=== PATIENT | female | born 1955 | race Caucasian/White ===

== ENCOUNTER → 2017-05-27 | Outpatient (CLI) | payer OTHER ==
[~2017-05-27] MED LIST: BUPR150T2; BUPR75 PO; ESCI20; LEVFLO500 PO; LORA1 PO; METF500 PO; OMEPRAZOLE MAGN20 MG PO; VENL37.5 PO
== END | disposition home or self-care (01) ==
LOC: LAB 08:30
DX: N39.0 Urinary tract infection, site not specified (principal)
CPT/HCPCS: 87086

== ENCOUNTER 2017-07-08 12:06 | Emergency (ER) | payer OTHER ==
[~2017-07-08] VITALS: Ht 165.1 cm; Wt 70.3 kg
[~2017-07-08 12:06] MED LIST changes: -METF500 PO
[2017-07-08 14:14] LABS: BASOPHILS ABSOLUTE AUTO 0.05 K/mm3 (0.00-0.23); BASOPHILS PERCENT AUTO 1 % (0-2); EOSINOPHILS ABSOLUTE AUTO 0.07 K/mm3 (0.00-0.68); EOSINOPHILS PERCENT AUTO 1 % (0-6); Hematocrit 36.9 % (33.0-51.0); Hemoglobin 11.7 g/dL (11.5-16.0); IMMATURE GRAN ABSOLUTE AUTO 0.01 K/mm3 (0.00-0.10); IMMATURE GRAN PERCENT AUTO 0 % (0-1); LYMPHOCYTES ABSOLUTE AUTO 2.34 K/mm3 (0.84-5.20); LYMPHOCYTES PERCENT AUTO 43 % (21-46); MONOCYTES ABSOLUTE AUTO 0.61 K/mm3 (0.16-1.47); MONOCYTES PERCENT AUTO 11 % (4-13); Mean Corpuscular HGB 26.5 pg (26.0-34.0); Mean Corpuscular HGB Conc 31.7 g/dL (31.5-36.5); Mean Corpuscular Volume 84 fL (80-100); Mean Platelet Volume 9.6 fL (9.1-12.4); NEUTROPHILS ABSOLUTE AUTO 2.39 K/mm3 (1.96-9.15); NEUTROPHILS PERCENT AUTO 44 % (41-73); Platelet Count 263 K/mm3 (150-400); RDW Coefficient Variation 13.2 % (11.7-14.2); RDW Standard Deviation 40.6 fL (35.1-46.3); Red Blood Cell Count 4.42 M/mm3 (3.80-5.20); White Blood Cell Count 5.47 K/mm3 (4.00-11.30)
[2017-07-08 14:30] LABS: Alanine Aminotransfer (ALT/SGP 32 U/L (12-78); Albumin, Blood 3.6 g/dL (3.4-5.0); Albumin/Globulin Ratio 1.1 (0.8-1.8); Alk Phos 85 U/L (50-136); Anion Gap 7 mmol/L (6-16); Aspartate Aminotrans (AST/SGOT 19 U/L (12-37); Bilirubin, Total 0.1 mg/dL (0.1-1.0); Blood Urea Nitrogen 13 mg/dL (8-24); Bun/Creatinine Ratio 18.5 (12.0-20.0); CO2, Blood 27 mmol/L (21-32); Calcium, Blood 8.2 mg/dL (8.5-10.1); Chloride, Blood 106 mmol/L (98-108); Globulin, Blood 3.3 g/dL (2.2-4.0); Glomerular Filtration Rate >60 (60-); Glucose, Blood 95 mg/dL (70-99); Potassium, Blood 4.1 mmol/L (3.5-5.5); Sodium, Blood 140 mmol/L (136-145); Total Protein, Blood 6.9 g/dL (6.4-8.2); Troponin I <0.015 ng/mL (0.000-0.040)
[2017-07-08] MEDS ORDERED: VENL37.5 PO (16:10)
[2017-07-08] MEDS ORDERED: METF500 PO (16:11)
== END 2017-07-08 16:52 | disposition home or self-care (01) ==
LOC: ER 12:06
PROVIDERS: Physician Assistant
DX: G56.01 Carpal tunnel syndrome, right upper limb (principal); E11.9 Type 2 diabetes mellitus without complications; Z90.710 Acquired absence of both cervix and uterus; Z79.84 Long term (current) use of oral hypoglycemic drugs; Z79.899 Other long term (current) drug therapy
CPT/HCPCS: 29125; 36415; 71046; 80053; 84484; 85025; 93005; 93010; 99283; L3917

== ENCOUNTER → 2017-10-18 | Outpatient (CLI) | payer OTHER ==
[~2017-10-18] MED LIST changes: +METF500 PO
== END ==
LOC: LAB SHORT 15:35 → OLS 15:35
PROVIDERS: Nurse Practitioner Women's Health
DX: Z12.72 Encounter for screening for malignant neoplasm of vagina (principal)
CPT/HCPCS: 87624; G0123

== ENCOUNTER → 2019-08-16 | Outpatient (CLI) | payer OTHER ==
[2019-08-16 20:28] LABS: Influenza A Negative (NEGATIVE); Influenza B Negative (NEGATIVE)
== END ==
LOC: LAB SHORT 18:27 → LAB 18:27
PROVIDERS: Nurse Practitioner Family
DX: J02.9 Acute pharyngitis, unspecified (principal); R50.9 Fever, unspecified; R05 Cough
CPT/HCPCS: 87804

== ENCOUNTER → 2020-07-02 | Outpatient (CLI) | payer OTHER | END | disposition home or self-care (01) | LOC: LAB SHORT 15:54 → LAB 15:54 | DX: R10.2 Pelvic and perineal pain (principal) | CPT/HCPCS: 87086 ==

== ENCOUNTER 2024-03-29 15:48 | Inpatient (IN) | payer OTHER ==
[~2024-03-29] VITALS: Ht 160 cm; Wt 57.6 kg
[~2024-03-29 15:48] MED LIST changes: -ACET500 PO; -AMOCLA875 PO; -CITA20 PO; -POTCHL20ER PO; -Percocet 5-3251 EACH PO; -SENN187 PO; -VISBIOME 112.51 EACH PO
[2024-03-29] MEDS ORDERED: NS 1,000 ML IV SCH ×2 (16:00→18:55)
[2024-03-29] MEDS ORDERED: Piperacillin/Tazobactam Sod 4.5 GM in NS 100 ML IV ONE (16:05)
[2024-03-29] MEDS ORDERED: FLU VACC TS2024-25(6MOS UP)/PF 45 MCG/0.5 ML SYRINGE IM SCH (18:55)
[2024-03-29] MEDS ORDERED: Ondansetron HCl 2 MG / ML 2ML Vial IV PRN (18:55)
[2024-03-29] MEDS ORDERED: OxyCODONE 5 mg/Acetamin 325 mg TABLET PO PRN (19:05)
[2024-03-29] MEDS ORDERED: FentaNYL Citrate 50 MCG/ML 2 ML Injection IV PRN (19:05)
[2024-03-29] MEDS ORDERED: NS 1,000 ML IV ONE (19:19)
[2024-03-29] MEDS ORDERED: FentaNYL Citrate 50 MCG/ML 2 ML Injection IV ONE (20:00)
[2024-03-29] MEDS ORDERED: CITA20 PO ×2 (21:50)
[2024-03-29 21:55] VITALS: BP 102/63
--- NOTE | 2024-03-29 22:16 | NUR ---
ARRIVAL TO UNIT PT ARRIVED TO RM 226 VIA W/C FROM ER. PT ABLE TO STAND AND PIVOT TO BED IND. PT A&O X4 , ANSWERS QUESTIONS APPROPRIATELY. PT ABLE TO HAVE CLEAR LIQUIDS UNITL MN THEN NPO, FOR POSSIBLE SURGERY TOMORROW. VSS. ORIENTED TO CALL LIGHT AND ROOM. NO OTHER CONCERNS AT THIS TIME, CALL LIT WITHIN REACH
[2024-03-29 23:59] VITALS: BP 127/80
[2024-03-30] VITALS (21 sets, daily range): BP systolic 105–141; BP diastolic 63–82
[2024-03-30] MEDS ORDERED: Piperacillin/Tazobactam Sod 3.375 GM in NS 100 ML IV SCH
[2024-03-30] MEDS ORDERED: Insulin Human Lispro 100 Units/ML 3ML Syringe SC SCH
[2024-03-30] MEDS ORDERED: D5W-1/2NS 1,000 ML IV SCH (01:10)
--- NOTE | 2024-03-30 04:18 | NUR ---
SHIFT SUMMARY NO ACUTE CHANGES SINCE COMING TO THE FLOOR. PT RESTED. IND IN THE ROOM. PT HAS BEEN NPO SINCE [place] FOR POSSIBLE SURGERY TODAY. PT DENIES N/V. PAIN MANAGED PER EMAR. VSS. NO OTHER CONCERNS AT THIS TIME CALL LIGHT WITHIN REACH
[2024-03-30 05:10] LABS: BASOPHILS ABSOLUTE AUTO 0.04 K/mm3 (0.00-0.23); BASOPHILS PERCENT AUTO 0 % (0-2); EOSINOPHILS ABSOLUTE AUTO 0.12 K/mm3 (0.00-0.68); EOSINOPHILS PERCENT AUTO 1 % (0-6); Hematocrit 35.3 % (33.0-51.0); Hemoglobin 11.5 g/dL (11.5-16.0); Mean Corpuscular HGB 28.9 pg (26.0-34.0); Mean Corpuscular HGB Conc 32.6 g/dL (31.5-36.5); Mean Corpuscular Volume 89 fL (80-100); Mean Platelet Volume 9.7 fL (9.1-12.4); Platelet Count 233 K/mm3 (150-400); RDW Coefficient Variation 13.1 % (11.7-14.2); Red Blood Cell Count 3.98 M/mm3 (3.80-5.20); White Blood Cell Count 8.97 K/mm3 (4.00-11.30)
[2024-03-30 05:12] LABS: IMMATURE GRAN ABSOLUTE AUTO 0.19 K/mm3 (0.00-0.10); IMMATURE GRAN PERCENT AUTO 2 % (0-1); LYMPHOCYTES ABSOLUTE AUTO 1.38 K/mm3 (0.84-5.20); LYMPHOCYTES PERCENT AUTO 15 % (21-46); MONOCYTES ABSOLUTE AUTO 0.94 K/mm3 (0.16-1.47); MONOCYTES PERCENT AUTO 11 % (4-13); NEUTROPHILS PERCENT AUTO 70 % (41-73)
[2024-03-30 05:51] LABS: Bun/Creatinine Ratio 14.7 (12.0-20.0); Calcium, Blood 8.3 mg/dL (8.5-10.1); Creatinine, Blood 0.61 mg/dL (0.40-1.00); Potassium, Blood 3.2 mmol/L (3.5-5.5)
[2024-03-30] MEDS ORDERED: Pantoprazole Sodium 40 MG Injection IV SCH (06:00)
[2024-03-30] MEDS ORDERED: Lactated Ringer's 1,000 ML IV SCH (07:35)
[2024-03-30] MEDS ORDERED: Citalopram Hydrobromide 20 MG Tab PO SCH (09:00)
--- NOTE | 2024-03-30 09:48 | NUR ---
BRANDON Solares, SPIRITUAL CARE IN TO SEE PT.
--- NOTE | 2024-03-30 10:29 | NUR ---
Pt. is awake in bed and welcomed my visit. Daughter is at bedside. Pt. is unsettled about the delay in her care, but displays evidence of trusting in God during the delay. Listen with empathy and a calming presence as I seek to normalize the Pt. experience. Facilitated life reivew and prayed for the Pt. Pt. displays evidence of being comforted. Pt. and daughter both verbalize gratitude for the spiritual care visit.
[2024-03-30] MEDS ORDERED: D5W-1/2NS 1,000 ML IV ONE (13:15)
--- NOTE | 2024-03-30 14:24 | NUR ---
PT TO SURGERY
[2024-03-30] MEDS ORDERED: Lidocaine HCl 2% 20 ML MDV ONE (14:56)
[2024-03-30] MEDS ORDERED: FentaNYL Citrate 50 MCG/ML 2 ML Injection ONE (15:04)
[2024-03-30] MEDS ORDERED: Midazolam HCl 1MG / ML 2ML Vial ONE (15:04)
[2024-03-30] MEDS ORDERED: Bupivacaine 0.5% HCl 5 MG/ML 30MLVIAL ONE (15:35)
[2024-03-30] MEDS ORDERED: Rocuronium Bromide 10 MG/ML 5ML Injection IV ONE (15:37)
[2024-03-30] MEDS ORDERED: Ketorolac Tromethamine 30mg Vial ONE (16:14)
[2024-03-30] MEDS ORDERED: Dexamethasone Sod Phos 10 MG/ML 1ML VIAL ONE (16:14)
[2024-03-30] MEDS ORDERED: Ondansetron HCl 2 MG / ML 2ML Vial ONE (16:14)
[2024-03-30] MEDS ORDERED: Sugammadex Sodium 200 MG/2ML SDV (100 MG/ML) ONE ×2 (16:14→17:33)
[2024-03-30] MEDS ORDERED: ePHEDrine Sulfate 50 MG/ML 1ML Injection ONE (17:09)
--- NOTE | 2024-03-31 04:14 | NUR ---
SHIFT SUMMARY POD 1 LAP APPY W/ ERNIE DRAIN PT SLEPT FOR MOST OF SHIFT. PAIN MANGED PER EMAR. TOLERATING PO INTAKE. ACOSTA DRAINING CLEAR YELLOW URINE. X4 LAP SITES W/ ERNIE DRAIN IN LLQ. ERNIE DRAINING SS FLUID. VSS. NO OTHER CONCERNS AT THIS TIME , CALL LIGHT WITHIN REACH
[2024-03-31 04:19] VITALS: BP 107/70
[2024-03-31] MEDS ORDERED: Insulin Human Lispro 100 Units/ML 3ML Syringe SC SCH (07:30)
[2024-03-31 07:33] VITALS: BP 113/68
[2024-03-31] MEDS ORDERED: Acetaminophen 500 MG Tab PO PRN (09:00)
[2024-03-31 09:22] LABS: Hematocrit 37.8 % (33.0-51.0); Hemoglobin 12.4 g/dL (11.5-16.0); Mean Corpuscular HGB Conc 32.8 g/dL (31.5-36.5); Mean Corpuscular Volume 89 fL (80-100); Mean Platelet Volume 9.6 fL (9.1-12.4); Platelet Count 270 K/mm3 (150-400); RDW Coefficient Variation 13.1 % (11.7-14.2); RDW Standard Deviation 42.5 fL (35.1-46.3); Red Blood Cell Count 4.27 M/mm3 (3.80-5.20); White Blood Cell Count 9.89 K/mm3 (4.00-11.30)
[2024-03-31 09:52] LABS: Bun/Creatinine Ratio 11.4 (12.0-20.0); Calcium, Blood 8.6 mg/dL (8.5-10.1); Creatinine, Blood 0.61 mg/dL (0.40-1.00); Potassium, Blood 3.3 mmol/L (3.5-5.5)
[2024-03-31 10:08] LABS: BAND PERCENT MAN 3 % (0-8); BASOPHILS PERCENT MAN 0 % (0-2); EOSINOPHILS PERCENT MAN 0 % (0-6); LYMPHOCYTES ABSOLUTE MAN 0.69 K/mm3 (0.84-5.20); LYMPHOCYTES PERCENT MAN 7 % (21-46); MONOCYTES ABSOLUTE MAN 0.19 K/mm3 (0.16-1.47); MONOCYTES PERCENT MAN 2 % (4-13); NEUTROPHILS ABSOLUTE MAN 8.99 K/mm3 (1.96-9.15); SEG NEUTROPHILS PERCENT MAN 88 % (41-73); TOTAL CELLS COUNTED 100
[2024-03-31 10:29] LABS: Cancer Antigen 125 2.1 U/mL (1.5-35.0); Cancer Antigen 19-9 6.5 U/mL (2.0-37.0); Carcinoembryonic Antigen 0.4 ng/mL (0.0-3.0)
[2024-03-31 14:42] VITALS: BP 110/70
--- NOTE | 2024-03-31 16:49 | NUR ---
SHIFT SUMMARY PT POD1 FOR APPENDECTOMY AND I&D. PT WAS ABLE TO AMBULATE AROUND UNIT A FEW TIMES WITH ADEQUATE PAIN CONTROL. PT DID VOID ALSO. BE PO INTAKE WELL. ERNIE IS DRAINING SEROSANGUINOUS FLUID. LAP SITES WNL. DIET ADVANCED TO REGULAR. DR RUIZ DISCUSSED WITH PT AND FAMILY FINDINGS DURING SURGERY. PT GETTING SCREENING DONE FOR CANCER RULE OUT DUE TO MASS FOUND. IV ABX ORDERED. PT HAS CALL LIGHT IN REACH AND USING APPROPRIATELY. ERNIE DRAIN DRESSING CHANGED DURING SHIFT DUE TO LEAKING.
[2024-03-31 20:09] VITALS: BP 112/80
[2024-04-01 04:32] VITALS: BP 98/62
[2024-04-01 04:39] LABS: Hematocrit 34.2 % (33.0-51.0); Hemoglobin 11.2 g/dL (11.5-16.0); Mean Corpuscular HGB 29.2 pg (26.0-34.0); Mean Corpuscular HGB Conc 32.7 g/dL (31.5-36.5); Mean Corpuscular Volume 89 fL (80-100); Mean Platelet Volume 9.6 fL (9.1-12.4); Platelet Count 268 K/mm3 (150-400); RDW Coefficient Variation 13.2 % (11.7-14.2); RDW Standard Deviation 43.7 fL (35.1-46.3); Red Blood Cell Count 3.84 M/mm3 (3.80-5.20); White Blood Cell Count 8.61 K/mm3 (4.00-11.30)
[2024-04-01 05:05] LABS: Bun/Creatinine Ratio 14.9 (12.0-20.0); Calcium, Blood 8.1 mg/dL (8.5-10.1); Creatinine, Blood 0.67 mg/dL (0.40-1.00); Potassium, Blood 2.9 mmol/L (3.5-5.5)
[2024-04-01 05:15] LABS: BAND PERCENT MAN 3 % (0-8); BASOPHILS PERCENT MAN 0 % (0-2); EOSINOPHILS ABSOLUTE MAN 0.25 K/mm3 (0.00-0.68); EOSINOPHILS PERCENT MAN 3 % (0-6); LYMPHOCYTES % ATYPICAL MANUAL 1 % (0-0); LYMPHOCYTES ABSOLUTE MAN 1.63 K/mm3 (0.84-5.20); LYMPHOCYTES PERCENT MAN 18 % (21-46); MONOCYTES ABSOLUTE MAN 0.17 K/mm3 (0.16-1.47); MONOCYTES PERCENT MAN 2 % (4-13); NEUTROPHILS ABSOLUTE MAN 6.54 K/mm3 (1.96-9.15); SEG NEUTROPHILS PERCENT MAN 73 % (41-73); TOTAL CELLS COUNTED 100
[2024-04-01 07:05] VITALS: BP 96/59
--- NOTE | 2024-04-01 07:24 | NUR ---
SHIFT SUMMARY NOC. PT POD 2 FOR APPY. LAP SITES C/D/I. ERNIE DRAIN PRODUCING SEROSANG DRAINAGE. PT VOIDING URINE AND TOLERATING PO INTAKE. PT AMBULATES TO BR WITH SBA AND FWW. NO COVERAGE NEEDED FOR ACHS BLOOD SUGARS. A/O X4. BED IN LOWEST POSITION, CALL LIGHT IN REACH.
[2024-04-01] MEDS ORDERED: Potassium Chloride 20 MEQ TabCR PO ONE (10:00)
[2024-04-01] MEDS ORDERED: ACET500 PO ×2 (10:14)
[2024-04-01] MEDS ORDERED: AMOCLA875 PO ×2 (10:15)
[2024-04-01] MEDS ORDERED: Percocet 5-3251 EACH PO ×2 (10:16)
[2024-04-01] MEDS ORDERED: SENN187 PO ×2 (10:18)
[2024-04-01] MEDS ORDERED: POTCHL20ER PO ×2 (10:18)
[2024-04-01] MEDS ORDERED: VISBIOME 112.51 EACH PO ×4 (10:19→10:20)
[2024-04-01 11:20] VITALS: BP 101/66
--- NOTE | 2024-04-01 12:07 | NUR ---
Discharge note. Pt discharged home. Education provided. ERNIE drain redressed and education given to Pt and daughter about how to manage it. Pt provided with phone numbers to make follow up appointments. All questions answered. Pt was escorted to the door by staff.
== END 2024-04-01 11:55 | disposition home or self-care (01) | DRG 399 ==
LOC: ER 15:48 → SURS 18:50
PROVIDERS: Internal Medicine; Nurse Practitioner Acute Care; Surgery; ADMIT Internal Medicine
PROC: 0W9G40Z Drainage of Peritoneal Cavity with Drainage Device, Percutaneous Endoscopic Approach (ICD-10-PCS; 2024-03-30)
PROC: 8E0W4CZ Robotic Assisted Procedure of Trunk Region, Percutaneous Endoscopic Approach (ICD-10-PCS; 2024-03-30)
PROC: 0WBH4ZX Excision of Retroperitoneum, Percutaneous Endoscopic Approach, Diagnostic (ICD-10-PCS; 2024-03-30)
PROC: 0DXU4ZW Transfer Omentum to Abdominal Region, Percutaneous Endoscopic Approach (ICD-10-PCS; 2024-03-30)
PROC: 0DTJ4ZZ Resection of Appendix, Percutaneous Endoscopic Approach (ICD-10-PCS; principal; 2024-03-30 14:45)
DX: K35.33 Acute appendicitis with perforation, localized peritonitis, and gangrene, with abscess (principal); E11.9 Type 2 diabetes mellitus without complications; K21.9 Gastro-esophageal reflux disease without esophagitis; F32.A Depression, unspecified; F41.9 Anxiety disorder, unspecified; E87.6 Hypokalemia; Z90.710 Acquired absence of both cervix and uterus; Z98.890 Other specified postprocedural states; Z79.899 Other long term (current) drug therapy; Z79.84 Long term (current) use of oral hypoglycemic drugs; Z87.891 Personal history of nicotine dependence
CPT/HCPCS: 36415; 74177; 80048; 80053; 82378; 82947; 85025; 86141; 86301; 86304; 88304; 88305; 96365-59; 99285-25; A9270; J1100; J1885; J2250; J2405; J2470; J2543; J3010; J7030; J7042; J7120; Q9967

== ENCOUNTER → 2024-03-29 | Outpatient (CLI) | payer OTHER ==
[~2024-03-29] MED LIST changes: +ACET500 PO; +AMOCLA875 PO; +CITA20 PO; +POTCHL20ER PO; +Percocet 5-3251 EACH PO; +SENN187 PO; +VISBIOME 112.51 EACH PO
[2024-03-29 14:13] LABS: BASOPHILS ABSOLUTE AUTO 0.05 K/mm3 (0.00-0.23); BASOPHILS PERCENT AUTO 1 % (0-2); EOSINOPHILS ABSOLUTE AUTO 0.07 K/mm3 (0.00-0.68); EOSINOPHILS PERCENT AUTO 1 % (0-6); Hematocrit 40.2 % (33.0-51.0); Hemoglobin 13.4 g/dL (11.5-16.0); IMMATURE GRAN ABSOLUTE AUTO 0.21 K/mm3 (0.00-0.10); IMMATURE GRAN PERCENT AUTO 2 % (0-1); LYMPHOCYTES PERCENT AUTO 14 % (21-46); MONOCYTES ABSOLUTE AUTO 1.26 K/mm3 (0.16-1.47); MONOCYTES PERCENT AUTO 12 % (4-13); Mean Corpuscular HGB 28.9 pg (26.0-34.0); Mean Corpuscular HGB Conc 33.3 g/dL (31.5-36.5); Mean Corpuscular Volume 87 fL (80-100); Mean Platelet Volume 9.7 fL (9.1-12.4); NEUTROPHILS ABSOLUTE AUTO 7.32 K/mm3 (1.96-9.15); NEUTROPHILS PERCENT AUTO 70 % (41-73); Platelet Count 253 K/mm3 (150-400); RDW Coefficient Variation 13.2 % (11.7-14.2); RDW Standard Deviation 41.4 fL (35.1-46.3); Red Blood Cell Count 4.64 M/mm3 (3.80-5.20); White Blood Cell Count 10.41 K/mm3 (4.00-11.30)
[2024-03-29 14:26] LABS: Albumin, Blood 2.8 g/dL (3.4-5.0); Albumin/Globulin Ratio 0.7 (0.8-1.8); Bilirubin, Total 0.4 mg/dL (0.1-1.0); Bun/Creatinine Ratio 21.9 (12.0-20.0); Calcium, Blood 8.8 mg/dL (8.5-10.1); Creatinine, Blood 0.73 mg/dL (0.40-1.00); Globulin, Blood 4.3 g/dL (2.2-4.0); Potassium, Blood 3.6 mmol/L (3.5-5.5); Total Protein, Blood 7.1 g/dL (6.4-8.2)
== END | disposition home or self-care (01) ==
LOC: LAB 14:09 → LAB SHORT 14:09
PROVIDERS: Chiropractor
DX: R11.2 Nausea with vomiting, unspecified (principal); R19.7 Diarrhea, unspecified
CPT/HCPCS: 80053; 85025

== ENCOUNTER 2025-05-22 11:59 | Observation (INO) | payer OTHER ==
[~2025-05-22] VITALS: Ht 154.9 cm; Wt 56.7 kg
[~2025-05-22 11:59] MED LIST changes: +ACET500 PO; +AMOCLA875 PO; +CITA20 PO; +POTCHL20ER PO; +Percocet 5-3251 EACH PO; +SENN187 PO; +VISBIOME 112.51 EACH PO
[2025-05-22 12:40] LABS: BASOPHILS ABSOLUTE AUTO 0.03 K/mm3 (0.00-0.23); BASOPHILS PERCENT AUTO 1 % (0-2); EOSINOPHILS ABSOLUTE AUTO 0.03 K/mm3 (0.00-0.68); EOSINOPHILS PERCENT AUTO 1 % (0-6); Hematocrit 39.7 % (33.0-51.0); Hemoglobin 13.5 g/dL (11.5-16.0); IMMATURE GRAN ABSOLUTE AUTO 0.01 K/mm3 (0.00-0.10); IMMATURE GRAN PERCENT AUTO 0 % (0-1); LYMPHOCYTES ABSOLUTE AUTO 1.82 K/mm3 (0.84-5.20); LYMPHOCYTES PERCENT AUTO 34 % (21-46); MONOCYTES ABSOLUTE AUTO 0.42 K/mm3 (0.16-1.47); MONOCYTES PERCENT AUTO 8 % (4-13); Mean Corpuscular HGB Conc 34.0 g/dL (31.5-36.5); Mean Corpuscular Volume 87 fL (80-100); NEUTROPHILS ABSOLUTE AUTO 3.11 K/mm3 (1.96-9.15); NEUTROPHILS PERCENT AUTO 57 % (41-73); NRBC ABSOLUTE 0.00 K/mm3 (0.00-0.02); NRBC Auto 0.0 /100 WBC (0.0-0.2); Platelet Count 197 K/mm3 (150-400); RDW Coefficient Variation 13.1 % (11.7-14.2); RDW Standard Deviation 41.7 fL (35.1-46.3)
[2025-05-22 12:58] LABS: Alanine Aminotransfer (ALT/SGP 28.0 U/L (12-78); Albumin, Blood 4.0 g/dL (3.4-5.0); Albumin/Globulin Ratio 1.2 (0.8-1.8); Anion Gap 9.0 mmol/L (3-11); Aspartate Aminotrans (AST/SGOT 22.0 U/L (12-37); Bilirubin, Total 0.7 mg/dL (0.1-1.0); Blood Urea Nitrogen 15.0 mg/dL (8-24); CO2, Blood 24.0 mmol/L (21-32); Calcium, Blood 8.5 mg/dL (8.5-10.1); Chloride, Blood 110.0 mmol/L (98-108); Creatinine, Blood 0.57 mg/dL (0.40-1.00); Globulin, Blood 3.2 g/dL (2.2-4.0); Glucose, Blood 103.0 mg/dL (70-99); Potassium, Blood 4.0 mmol/L (3.5-5.5); Sodium, Blood 139.0 mmol/L (136-145); Total Protein, Blood 7.2 g/dL (6.4-8.2)
[2025-05-22] MEDS ORDERED: NS 1,000 ML IV SCH ×2 (16:30→19:35)
[2025-05-22 17:10] LABS: Magnesium, Blood 2.2 mg/dL (1.6-2.4); Thyroid Stimulating Hormone 1.35 uIU/mL (0.360-4.800)
[2025-05-22] MEDS ORDERED: DiphenhydrAMINE HCl 50 MG/ML 1ML Vial IV ONE (17:25)
[2025-05-22] MEDS ORDERED: Prochlorperazine Edisylate 10 mg Vial IV ONE (17:25)
[2025-05-22 18:24] LABS: Source, Urine Clean Catch
[2025-05-22 18:30] LABS: Bilirubin, Urine Neg (Neg); Glucose Qualitative, Urine Neg (Neg); Ketones, Urine 1+ (Neg); Leukocyte Esterase, Urine 2+ (Neg); Protein, Urine Neg (Neg); Specific Gravity, Urine 1.015 (1.003-1.022); Urobilinogen, Urine NORM (Normal)
[2025-05-22 18:36] LABS: Color, Urine Pale Yellow (P-Yellow)
[2025-05-22] MEDS ORDERED: Metoclopramide HCl 5MG / ML 2ML Vial IV PRN (19:35)
[2025-05-22] MEDS ORDERED: FLU VACC TS2025(65UP)/MF59C/PF 45 MCG/0.5 ML SYRINGE IM SCH (19:40)
[2025-05-22] MEDS ORDERED: Ketorolac Tromethamine 15mg Vial IV PRN (19:50)
[2025-05-22] MEDS ORDERED: Ketorolac Tromethamine 15mg Vial IV ONE (20:00)
[2025-05-22 22:37] VITALS: BP 138/78
[2025-05-23 04:36] VITALS: BP 114/73
--- NOTE | 2025-05-23 06:30 | NUR ---
SHIFT SUMMARY PT A&OX4 AND ANSWERS QUESTIONS APPROPRIATELY. PT EXPERIENCING DIZZINESS AND STATES "THE ROOM IS SPINNING". PT ADMITTED FOR VERTIGO. PT VSS, NO COMPLAINTS OF CP/PRESSURE OR SOB. PT ORIENTED TO ROOM AND UNIT. PT DENIES PAIN AT THIS TIME. PT SPENT MOST OF SHIFT IN BED WITH EYES CLOSED AND RESPIRATIONS EVEN AND UNLABORED. FALL PRECAUTIONS IN PLACE AND CALL LIGHT IN REACH.
[2025-05-23 07:38] VITALS: BP 116/77
[2025-05-23 08:23] LABS: BASOPHILS ABSOLUTE AUTO 0.04 K/mm3 (0.00-0.23); BASOPHILS PERCENT AUTO 1 % (0-2); EOSINOPHILS ABSOLUTE AUTO 0.06 K/mm3 (0.00-0.68); EOSINOPHILS PERCENT AUTO 1 % (0-6); Hematocrit 37.5 % (33.0-51.0); Hemoglobin 12.7 g/dL (11.5-16.0); IMMATURE GRAN ABSOLUTE AUTO 0.00 K/mm3 (0.00-0.10); IMMATURE GRAN PERCENT AUTO 0 % (0-1); LYMPHOCYTES ABSOLUTE AUTO 1.68 K/mm3 (0.84-5.20); LYMPHOCYTES PERCENT AUTO 40 % (21-46); MONOCYTES ABSOLUTE AUTO 0.43 K/mm3 (0.16-1.47); MONOCYTES PERCENT AUTO 10 % (4-13); Mean Corpuscular HGB Conc 33.9 g/dL (31.5-36.5); Mean Corpuscular Volume 87 fL (80-100); NEUTROPHILS ABSOLUTE AUTO 1.95 K/mm3 (1.96-9.15); NEUTROPHILS PERCENT AUTO 47 % (41-73); NRBC ABSOLUTE 0.00 K/mm3 (0.00-0.02); NRBC Auto 0.0 /100 WBC (0.0-0.2); Platelet Count 164 K/mm3 (150-400); RDW Coefficient Variation 13.0 % (11.7-14.2); RDW Standard Deviation 41.5 fL (35.1-46.3)
[2025-05-23 08:57] LABS: Alanine Aminotransfer (ALT/SGP 21.0 U/L (12-78); Albumin, Blood 3.4 g/dL (3.4-5.0); Albumin/Globulin Ratio 1.2 (0.8-1.8); Anion Gap 9.0 mmol/L (3-11); Aspartate Aminotrans (AST/SGOT 13.0 U/L (12-37); Bilirubin, Total 0.7 mg/dL (0.1-1.0); Blood Urea Nitrogen 14.0 mg/dL (8-24); CO2, Blood 23.0 mmol/L (21-32); Calcium, Blood 8.2 mg/dL (8.5-10.1); Chloride, Blood 110.0 mmol/L (98-108); Creatinine, Blood 0.61 mg/dL (0.40-1.00); Globulin, Blood 2.9 g/dL (2.2-4.0); Glucose, Blood 94.0 mg/dL (70-99); Potassium, Blood 3.4 mmol/L (3.5-5.5); Sodium, Blood 139.0 mmol/L (136-145); Total Protein, Blood 6.3 g/dL (6.4-8.2)
[2025-05-23] MEDS ORDERED: Enoxaparin 40 MG/0.4 ML SYR SC SCH (09:00)
--- NOTE | 2025-05-23 09:07 | NUR ---
NOTE THIS RN REPORTED IMAGING RESULTS TO
[2025-05-23 11:23] VITALS: BP 143/82
[2025-05-23 15:51] VITALS: BP 145/81
--- NOTE | 2025-05-23 16:37 | NUR ---
NOTE DR. WADE ORDERED DISCHARGE. PT REQUESTED TO GO HOME TOMORROW DUE TO NO PHARMACY OPEN TODAY AND NEED WALKER AT HOME, DR. WADE REPORTED "OK, DISCHARGE PLAN TOMORROW."
--- NOTE | 2025-05-23 18:08 | NUR ---
SHIFT SUMMARY PT A&OX4. PT ADMITTED DUE TO [facility]. REPORTED PT POSITIVE FOR BPPV PT REPORTS DIZZY WHEN AMBULATING, PT CAPABLE OF TAKING IT SLOW WHEN AMBULATING SO THAT SHE ISN'T SO DIZZY. PT DENIED SOB AND DENIED CHEST PRESSURE DISCOMFORT. PT DENIED GEN PAIN. PT ON TELE, NO TELE REPORTS NOTED. PT CONT OF URINE. PT AMBULATES W SBA W FWW. PT EDUCATED ON FALL PRECAUTIONS, PT WORKED WITH PT TODAY. PT HAS STICHES ON R SIDE OF FACE ABOVE EYE AND ON PALM. IV FLUIDS D/C'D. PT ACHS, PT REPORTS HAS DIABETES BUT CONTROLLED BY DIET, PT REPORTS LAST TIME HOSPITALIZED HAD HIGH BLOOD SUGARS DUE TO THE FOOD. ORDERED ACHS BLOOD SUGAR CHECKS WITHOUT INSULIN ORDERED. PT ON CC DIET. PT HAS NOT REQUIRED INSULIN. PLAN IS D/C TOMORROW WHEN PHARMACY IS OPEN AND PT CAN GET WALKER FOR AT HOME. PT IN BED, BED IN LOWEST POSITION, LOCKED, CALL LIGHT IN REACH. PT CALLS APPROPRIATE. PT VSS.
[2025-05-23 19:34] VITALS: BP 124/75
[2025-05-23 23:37] VITALS: BP 113/84
[2025-05-24 03:41] VITALS: BP 120/75
--- NOTE | 2025-05-24 06:52 | NUR ---
MANAGER DOCUMENTATION SUMMARY PT A&OX4, VSS. ABLE TO COMMUNICATE NEEDS APPROPRIATELY. NO ACUTE CHANGES THIS SHIFT. PT HAS BEEN ASLEEP FOR MOST OF THE SHIFT. CHEST RISE/RESPIRATIONS NOTED. UP INTERMITTENTLY W/ SBA W/ FWW TO USE RESTROOM. PT CALLS APPROPRIATELY FOR ASSISTANCE. BED RAILS UP X 2, BED IN LOWEST POSITION, BED WHEELS LOCKED, PERSONAL BELONGINGS AND CALL LIGHT WITHIN REACH FOR SAFETY.
[2025-05-24 08:39] VITALS: BP 121/80
[2025-05-24] MEDS ORDERED: MECL25 PO (10:47)
--- NOTE | 2025-05-24 11:27 | NUR ---
PT DISCAHRGE REVIEWED WITH PT. PT PT VERBALIZED UNDERSTANDING MEDS AND INST. IV AND TELE REMOVED BY AIDE. PT WHEELED TO DOOR AT 1123
== END 2025-05-24 11:41 | disposition home or self-care (01) ==
LOC: ER 11:59 → MEDS 12:00
PROVIDERS: Emergency Medicine; Student in an Organized Health Care Education/Training Program; ADMIT Student in an Organized Health Care Education/Training Program
DX: H81.10 Benign paroxysmal vertigo, unspecified ear (principal); M54.2 Cervicalgia; W18.30XA Fall on same level, unspecified, initial encounter; E11.9 Type 2 diabetes mellitus without complications; F32.A Depression, unspecified; K21.9 Gastro-esophageal reflux disease without esophagitis; Z79.899 Other long term (current) drug therapy; Z87.891 Personal history of nicotine dependence; Z90.710 Acquired absence of both cervix and uterus; Z90.49 Acquired absence of other specified parts of digestive tract
CPT/HCPCS: 36415; 70450; 72125; 80053; 81001; 82607; 82947; 83735; 84439; 84443; 85025; 93005; 93010; 96372; 96374; 96375; 97116; 97161; 97530; 99285-25; A9270; G0378; J0780; J1200; J1650; J1885; J7030